=== PATIENT | female | born 1995 | race Two or more races ===

== ENCOUNTER → 2017-07-06 | Emergency (ER) | payer BC ==
[~2017-07-06] VITALS: Ht 157.5 cm; Wt 48.1 kg
[~2017-07-06] MED LIST: AMOX TR-K CLV 51 TAB; NEOMYCIN; POLY; PROAIR RESPICL90 MCG; [UNRECOGNIZED DRUG - OTHER]
== END | disposition home or self-care (01) ==
LOC: ER 13:07
DX: K52.9 Noninfective gastroenteritis and colitis, unspecified (principal); Z33.1 Pregnant state, incidental

== ENCOUNTER → 2017-08-17 | Emergency (ER) | payer BC ==
[~2017-08-17] VITALS: Ht 160 cm; Wt 48.5 kg
[~2017-08-17] MED LIST changes: +OBSTETRIX ONE1 EACH; +ZOFRAN8 MG
== END | disposition home or self-care (01) ==
LOC: ER 17:20
DX: O26.891 Other specified pregnancy related conditions, first trimester (principal); K29.70 Gastritis, unspecified, without bleeding; Z34.01 Encounter for supervision of normal first pregnancy, first trimester

== ENCOUNTER 2017-08-29 17:31 | Emergency (ER) | payer BC ==
[~2017-08-29] VITALS: Ht 160 cm; Wt 52.2 kg
== END 2017-08-29 21:32 | disposition home or self-care (01) ==
LOC: ER 17:31
DX: K29.60 Other gastritis without bleeding (principal)

== ENCOUNTER 2017-09-30 08:11 | Emergency (ER) | payer BC ==
[~2017-09-30] VITALS: Ht 160 cm; Wt 52.6 kg
== END 2017-09-30 12:14 | disposition home or self-care (01) ==
LOC: ER 08:11
DX: O26.892 Other specified pregnancy related conditions, second trimester (principal); R10.84 Generalized abdominal pain; Z34.01 Encounter for supervision of normal first pregnancy, first trimester

== ENCOUNTER 2017-12-09 15:15 | Inpatient (IN) | payer BC ==
[~2017-12-09] VITALS: Ht 157.5 cm; Wt 61.7 kg
[2017-12-09] MEDS ORDERED: MULTI VITAMIN1 EACH PO (17:56)
[2018-01-17] MEDS ORDERED: HYDROXYZINE PAM50 MG PO (11:28)
[2018-01-17] MEDS ORDERED: NIFEDIPINE ER30 MG PO (11:28)
== END 2018-01-17 13:25 | disposition home or self-care (01) | DRG 780 ==
LOC: LDR 15:15 → OB/GYN 12-11 08:16
PROC: BY4FZZZ Ultrasonography of Third Trimester, Single Fetus (ICD-10-PCS; principal; 2017-12-09)
PROC: 4A1HXCZ Monitoring of Products of Conception, Cardiac Rate, External Approach (ICD-10-PCS; 2017-12-09)
PROC: BT43ZZZ Ultrasonography of Bilateral Kidneys (ICD-10-PCS; 2017-12-15)
DX: O47.03 False labor before 37 completed weeks of gestation, third trimester (principal); R10.31 Right lower quadrant pain
CPT/HCPCS: 240

== ENCOUNTER 2018-02-10 06:44 | Inpatient (IN) | payer BC ==
[~2018-02-10] VITALS: Ht 157.5 cm; Wt 68.5 kg
[~2018-02-10 06:44] MED LIST changes: +HYDROXYZINE PAM50 MG PO; +MULTI VITAMIN1 EACH PO; +NIFEDIPINE ER30 MG PO
[2018-02-10] MEDS ORDERED: PRENATAL TABLE1 EAC3 PO (07:54)
[2018-02-10] MEDS ORDERED: IRON325 MG PO (07:54)
== END 2018-02-12 14:03 | DRG 775 ==
LOC: LDR 06:44 → OB/GYN 13:57
PROC: 10E0XZZ Delivery of Products of Conception, External Approach (ICD-10-PCS; principal; 2018-02-10)
PROC: 4A1HXCZ Monitoring of Products of Conception, Cardiac Rate, External Approach (ICD-10-PCS; 2018-02-10)
DX: O80 Encounter for full-term uncomplicated delivery (principal); Z3A.38 38 weeks gestation of pregnancy; Z37.0 Single live birth

== ENCOUNTER 2019-02-14 11:40 | Emergency (ER) | payer BC ==
[~2019-02-14] VITALS: Ht 160 cm; Wt 58.1 kg
[~2019-02-14 11:40] MED LIST changes: +IRON325 MG PO; +PRENATAL TABLE1 EAC3 PO
== END 2019-02-14 16:11 | disposition home or self-care (01) ==
LOC: ER 11:40
DX: N92.5 Other specified irregular menstruation (principal)